=== PATIENT | female | born 1970 | race Caucasian/White ===

== ENCOUNTER → 2018-06-18 13:51 | Outpatient (CLI) | payer OTHER, SELFPAY ==
[2018-06-18 15:05] LABS: Erythrocyte Sedimentation Rate 2 mm/hr (0-20)
[2018-06-18 15:06] LABS: Absolute Lymphocyte Count 4.33 X10^3/ul (0.83-4.51); Absolute Neutrophil Count 9.2 X10^3/uL (2.0-7.7); Basophil# 0.02 X10^3/uL; Basophil% 0.1 % (0-1); Eosinophil# 0.06 X10^3/uL; Eosinophils% 0.4 % (0-5); Hematocrit 47.2 % (37-47); Hemoglobin 15.8 g/dl (12.0-15.0); Lymphocyte # 4.33 X10^3/ul (4.0); Lymphocyte % 29.9 % (19-41); Mean Corp Hgb Conc 33.5 g/gl (32-36); Mean Corpuscular Hgb 29.5 pg (27.0-32.0); Mean Corpuscular Volume 88.2 fL (81-99); Mean Platelet Vol. 11.2 fl (6.2-12.0); Monocyte# 0.87 X10^3/uL; Neutrophil # 9.18 X10^3/uL (2.7-7.7); Neutrophil % 63.4 % (47-70); POSITIVE COUNT NO; POSITIVE DIFFERENTIAL NO; POSITIVE MORPHOLOGY NO; Platelet Count 232 K/mm3 (150-450); RBC Distribution Width SD 41.8 fl (35.1-43.9); Red Blood Count 5.35 M/mm3 (4.2-5.4); White Blood Count 14.5 K/mm3 (4.4-11.0)
[2018-06-18 15:28] LABS: ALB/GLOB Ratio 1.2 RATIO (0.9-2.4); AST(SGOT) 28 U/L (15-37); Alanine Aminotransfer ALT/SGPT 46 U/L (13-56); Alkaline Phosphatase 65 U/L (45-117); Anion Gap 8 (5-15); BUN 11 mg/dL (7-18); BUN/Creat Ratio 12.7 RATIO (10-20); CRP < 2.90 mg/L (0.0-3.0); Calcium,Total 8.8 mg/dL (8.5-10.1); Chloride 105 mmol/L (98-107); Creatinine, Serum 0.87 mg/dL (0.55-1.02); EST Glomerular Filtration Rate 75 mL/min (>60); Est Glom Filt Rate - Afr Amer 90 mL/min (>60); Globulin 3.3 g/dL (2.2-4.2); Glucose 69 mg/dL (74-106); Potassium 3.6 mmol/L (3.5-5.1); Protein, Total 7.3 g/dL (6.4-8.2); Sodium Level 142 mmol/L (136-145)
== END ==
PROVIDERS: Family Provider Internal Medicine; PCP Internal Medicine; Visit Provider Internal Medicine
DX: R10.13 Epigastric pain (principal)
CPT/HCPCS: 36415; 80053; 85025; 85652; 86140

== ENCOUNTER → 2018-06-19 08:59 | Outpatient (CLI) | payer OTHER, SELFPAY ==
--- NOTE | 2018-06-19 09:02 | US_ITS ---
STUDY: ABDOMINAL ULTRASOUND - RIGHT UPPER QUADRANT REASON FOR VISIT: Female, 48 years old. Abdominal right upper quadrant pain x2.5 weeks. TECHNIQUE: Ultrasound evaluation of the right upper quadrant was performed with real-time and static solomon-scale imaging. TECHNICAL QUALITY: Adequate. COMPARISON: None available. FINDINGS: Liver: The liver measures 14.0 cm. There is normal echogenicity of the liver. The bile ducts visualized appear within normal limits. There is hepatic color flow. The direction of portal flow appears hepatopetal. There is no demonstrated mass lesion. Gallbladder: Normal distended gallbladder. The gallbladder wall measures 2.0 mm. There is a negative sonographic Ortiz's sign. There is no pericholecystic fluid. There are no gallstones. Common Bile Duct (C.B.D.): The common bile duct measures 2.4 mm diameter. Pancreas: Normal size of the visualized head, body and tail of the pancreas. Small portions pancreatic head and tail are partially disturbed by bowel contents. There is normal echogenicity of the pancreas. There is no demonstrated pancreatic mass or cyst. No pancreatic ductal dilatation identified. Right Kidney: Normal size of the right kidney. The right kidney measures 10.7 x 4.4 x 4.9 cm. Normal renal cortex. The right cortex measures 1.0 cm. There is no demonstrated renal mass or cyst. There is no right hydronephrosis. Prominent right extra renal pelvis suggested. One image shows rounded smooth margin tiny homogeneous hyperechoic area proximal 0.25 cm diameter, may represent artifact or tiny calculus. US/Gallbladder IMPRESSION: Normal appearing right upper quadrant ultrasound examination. Prominent right extrarenal pelvis. Artifact versus tiny calculus right kidney. Limitations above. Electronically Signed: Aman Yoon, at 11:40 EDT Tel , Service support ,
--- NOTE | 2018-06-19 16:05 | CT_ITS ---
STUDY: CT ABDOMEN AND PELVIS WITHOUT CONTRAST REASON FOR EXAM: Female, 48 years old. Right upper quadrant pain. RADIATION DOSAGE (If Supplied By Facility): CTDIvol = ( 15.42 ) mGy, DLP = ( 716.57 ) mGycm TECHNIQUE: Transaxial images were obtained from the dome of the diaphragm to the symphysis pubis without oral contrast, and without intravenous contrast. Sagittal and coronal images were reconstructed. Individualized dose optimization techniques were used for this CT. COMPARISON: Gallbladder ultrasound June 19, 2018 FINDINGS: The visualized lung bases are unremarkable. The visualized portions of the heart are within normal limits. Normal liver. Normal gallbladder and extrahepatic biliary system. Normal spleen. Normal pancreas. Normal bilateral adrenal glands. Normal size of the right kidney. Extrarenal pelvis without caliectasis or ureteral dilatation. Negative for renal or ureteral stones. Normal left kidney. Food filled stomach. Normal small intestine. Normal colon. Small appendicolith of an otherwise normal appendix versus retention of dense medication. Minimal calcified plaque of the aorta. Normal inferior vena cava. Normal retroperitoneum. Normal urinary bladder. Negative for pelvic mass or free fluid of the pelvis. Normal abdominal wall. Degenerative facet joint changes. CT/Abdomen/Pelvis without Cont IMPRESSION: No acute bowel related findings. Negative for evidence of obstruction, inflammation or perforation. A normal size appendix is identified. There is some amorphous density in the appendix. Appendicolith versus retained dense medication, most likely the latter. Normal size kidneys bilaterally. Extrarenal pelvis on the right. Negative for renal, ureteral or bladder stones. Negative for pelvic mass or free fluid of the pelvis. Electronically Signed: Kimberley Roca MD at 17:29 EDT , Service support ,
== END ==
PROVIDERS: Family Provider Internal Medicine; PCP Internal Medicine; Visit Provider Internal Medicine
DX: R10.13 Epigastric pain (principal)
CPT/HCPCS: 74176; 76705

== ENCOUNTER → 2018-06-20 12:16 | Outpatient (CLI) | payer OTHER, SELFPAY ==
--- NOTE | 2018-06-20 12:19 | NM_ITS ---
CLINICAL: 48-year-old female with reported history of right upper quadrant abdominal pain. RADIONUCLIDE HEPATOBILIARY SCINTIGRAPHY COMPARISON: CT of the abdomen-pelvis and abdominal ultrasound reports 06/19/2018 FINDINGS: Following the intravenous administration of 5.2 mCi of 99m Tc Mebrofenin, hepatobiliary images reveal: 1. Relatively prompt and homogeneous radiopharmaceutical concentration is noted by a normal sized liver. No parenchymal defects are identified. 2. Gallbladder activity is identified at 15 minutes post radiopharmaceutical administration. 3. Small intestinal tract is observed by 60 minutes post radiopharmaceutical administration. 4. Washout of the radiopharmaceutical by the hepatic parenchyma appears qualitatively normal. Cholecystokinin (0.02 ug/kg) was administered intravenously over a 30-minute period. The post CCK gallbladder ejection fraction calculated at 60 minutes following Cholecystokinin administration was noted to be 47.0 % (normal greater than 35%). During 30 minutes of post CCK imaging, there is no scintigraphic evidence of reflux of the radiotracer into the common hepatic duct or refilling of the gallbladder. NM/Hepatobilliary Img w/Pharm Int IMPRESSION: 1. NORMAL 99m Tc Mebrofenin hepatobiliary imaging examination with Cholecystokinin. A. A gallbladder ejection fraction calculated to be greater than 35% following the administration of Cholecystokinin makes the probability of functional hepatobiliary disease (gallbladder and/or sphincter of Oddi dyskinesia) and/or organic hepatobiliary disease (chronic acalculous cholecystitis and/or cystic duct syndrome) to be low. (Susan Mishra et al, Journal of Nuclear Medicine 32:1695, 1990). Electronically Signed: Oz Menchaca DO at 15:31 EDT Tel , Service support ,
== END ==
PROVIDERS: Family Provider Internal Medicine; PCP Internal Medicine; Visit Provider Internal Medicine
DX: R10.13 Epigastric pain (principal)
CPT/HCPCS: 78227; A9537

== ENCOUNTER → 2018-07-02 11:33 | Outpatient (CLI) | payer OTHER, SELFPAY ==
[2018-07-02 12:25] LABS: Absolute Lymphocyte Count 3.81 X10^3/ul (0.83-4.51); Absolute Neutrophil Count 8.5 X10^3/uL (2.0-7.7); Basophil# 0.02 X10^3/uL; Basophil% 0.2 % (0-1); Eosinophil# 0.06 X10^3/uL; Eosinophils% 0.5 % (0-5); Hematocrit 44.5 % (37-47); Hemoglobin 14.5 g/dl (12.0-15.0); Lymphocyte # 3.81 X10^3/ul (4.0); Lymphocyte % 29.2 % (19-41); Mean Corp Hgb Conc 32.6 g/gl (32-36); Mean Corpuscular Hgb 28.9 pg (27.0-32.0); Mean Corpuscular Volume 88.8 fL (81-99); Mean Platelet Vol. 10.9 fl (6.2-12.0); Monocyte# 0.64 X10^3/uL; Monocyte% 4.9 % (0-10); Neutrophil # 8.52 X10^3/uL (2.7-7.7); Platelet Count 195 K/mm3 (150-450); RBC Distribution Width SD 42.1 fl (35.1-43.9); Red Blood Count 5.01 M/mm3 (4.2-5.4); White Blood Count 13.1 K/mm3 (4.4-11.0)
[2018-07-02 12:29] LABS: POSITIVE COUNT NO; POSITIVE DIFFERENTIAL NO; POSITIVE MORPHOLOGY NO
== END ==
PROVIDERS: Family Provider Internal Medicine; PCP Internal Medicine; Visit Provider Internal Medicine
DX: D72.829 Elevated white blood cell count, unspecified (principal)
CPT/HCPCS: 36415; 85025

== ENCOUNTER 2018-07-07 05:53 | Day surgery (SDC) | payer OTHER, SELFPAY ==
[2018-07-07] VITALS (7 sets, daily range): BP systolic 101–140; BP diastolic 57–91; PULSE 68–84; RESP 18; TEMP 36.1–36.7; O2SAT 99–100; BMI 36.9
--- NOTE | 2018-07-07 | IMM_PTH ---
PATIENT: COLLINS MARTINEZ LOC: EN U#:[id number] AGE/SX: 48/F ROOM: RE07/07/[address]: Dr. Aman Suh MD : 1970 BED: DIS: 07/07/2018 SPEC #: [id number] RECD: 07/07/18 15:41 STATUS: MCKAYLA REClaude #: [id number] MOISES: 07/07/18 00:[address]: Aman Suh DEPT: IMMUNOHISTOCHEMISTRY RECD BY: Roni Mehta ENTERED: 07/07/18 15:41 SP TYPE: IMMUNO OTHR DR: Dr. Pooja Corral, Tissues: Gastric mucous membrane Procedures: H Pylori (initial) PHYSICIAN & INSTITUTION [place] [address] SPECIMEN INFORMATION: Tissue Source: Gastric antrum Clinical Info: Epigastric abdominal pain Specimen Number: [id number] CPT code: 40213 METHODOLOGY: Deparaffinized sections of prefer/formalin-fixed tissue or PAP/DQ stained slides are incubated with monoclonal/polyclonal antibodies/oligonucleotide probes. Localization is made via biotin free immunoperoxidase method. Appropriate controls are performed and reacted as expected. Results on target cell population are indicated in the following table: RESULTS: ANTIBODY / CLONE RESULT Block B H Pylori (polyclonal) negative These tests were developed and their performance characteristics determined by [facility]. They may not have been cleared or approved by the U.S. Food and Drug Administration. The FDA has determined that such clearance or approval is not necessary. INTERPRETATION: Gastric antrum, biopsy: Negative for Helicobacter pylori organisms. AM:vinita 07/09/18
--- NOTE | 2018-07-07 06:30 | EGD_PTH ---
PATIENT: COLLINS MARTINEZ LOC: EN U#:[id number] AGE/SX: 48/F ROOM: RE07/07/[address]: Dr. Aman Suh MD : 1970 BED: DIS: 07/07/2018 SPEC #: [id number] RECD: 07/07/18 13:26 STATUS: MCKAYLA CHACHO #: [id number] MOISES: 07/07/18 06:[address]: Aman Suh DEPT: SURGICAL PATHOLOGY RECD BY: Alfred Patel ENTERED: 07/07/18 13:59 SP TYPE: EGD BIOPSY AMBERLY DR: Dr. Pooja Corral DO Tissues: A - Duodenum, NOS B - Gastric mucous membrane C - Esophageal mucous membrane D - Esophageal mucous membrane Procedures: Surgery Specimen Level IV HEADER OPERATION: EGD poss dilation, MOS PRE-OP DIAGNOSIS: Epigastric abdominal pain TISSUE SUBMITTED: A. Duodenum, B. Gastric antrum ? path and H. Pylori, C. Distal esophagus, D. Mid esophagus MICROSCOPIC DIAGNOSIS A. Duodenum, biopsy: No pathologic diagnosis. B. Gastric antrum, biopsy: Mild chronic gastritis. C. Distal esophagus, biopsy: Fragments of benign superficial squamous mucosa. No evidence of inflammation. D. Mid esophagus, biopsy: Fragments of benign superficial squamous mucosa. No evidence of inflammation. AM:vinita 07/08/18 COMMENT B - The results of immunohistochemistry for Helicobacter pylori will be reported separately ([id number]). MICROSCOPIC DESCRIPTION Slides are reviewed. GROSS DESCRIPTION A - Received in fixative is one container labeled with the patient's name and designated duodenum biopsy. The specimen consists of multiple irregular fragments of light segal soft tissue that in aggregate measure 0.2 x 0.2 x 0.1 cm. The specimen is totally submitted in one cassette. B - Received in fixative is one container labeled with the patient's name and designated gastric antrum. The specimen consists of one irregular fragment of light segal soft tissue that measures 0.5 x 0.2 x 0.1 cm. The specimen is totally submitted in one cassette. C - Received in fixative is one container labeled with the patient's name and designated distal esophagus. The specimen consists of multiple irregular fragments of light segal soft tissue that in aggregate measure 0.6 x 0.3 x 0.1 cm. The specimen is totally submitted in one cassette. D - Received in fixative is one container labeled with the patient's name and designated mid esophagus. The specimen consists of two irregular fragments of light segal soft tissue that in aggregate measure 0.5 x 0.3 x 0.1 cm. The specimen is totally submitted in one cassette. / AM:vinita 07/07/18 TC:3 CPT: 98509 x4
--- NOTE | 2018-07-07 06:47 | PCM.OPRPT ---
Problem List (1) Epigastric abdominal pain Status: Acute Report of Operation Date of Procedure: 07/07/18 Pre-Operative Diagnosis: Epigastric right upper quadrant abdominal pain Post-Operative Diagnosis: Minimal antral erythema, small hiatal hernia, no acute findings Surgery/Procedure Performed:: Esophagogastroduodenoscopy with duodenal and antral and distal esophageal and mid esophageal biopsies with cold forceps Description of Surgical Findings:: Timeout informed consent was obtained. 48-year-old female was taken to the endoscopy room. Her oropharynx anesthetized with Topex. She was placed in the left lateral decubitus position. Throughout the procedure in aliquots she received total of 100 mg Demerol 3 mg of Versed is intravenous sedation. Under direct visitation videogastroscope was inserted into the esophageal inlet. Proximal mid distal esophagus did not appear to be remarkable. EG junction was at 38 cm. Small hiatal hernia noted. No gross evidence of significant reflux. The scope was advanced into the stomach. Some very mild erythema in the antrum noted. The pylorus appeared to be slightly small but simply with air insufflation and gentle pressure the scope was advanced. Perhaps more of a hypertonic response. The scope was advanced to the first and second portions of the duodenum. This was not remarkable. Biopsy was obtained of the second portion of the duodenum. Hemostasis was intact. The scope was withdrawn back in the stomach retroflexed the EG junction cardia inspected. Small wide open hiatal hernia noted. Photographs obtained. The scope was placed back in in antegrade viewing position. Cold forcep antral biopsy was obtained. Excess fluid and air was aspirated free after carefully inspecting greater and lesser curvatures. The scope was withdrawn to the distal esophagus were distal esophageal biopsies were obtained and then mid esophageal biopsies were obtained with cold forceps as well. Hemostasis was intact. No gross mucosal abnormalities of the esophagus. The procedure was completed with patient tolerating it well. Impression Small hiatal hernia. Minimal antral erythema. Possibly slightly increased pyloric resting muscular tone. Biopsies are pending. Recommendations for outpatient nuclear medicine emptying study will be pursued. The etiology of this patient's epigastric right upper quadrant pressure pain is undetermined at this time. Cc: Dr. Krista Corral Scope was inserted 0635. The procedure was completed at 0643. Aman Suh M.D., F.A.C.S. Type of Anesthesia:: IV Sedation
== END 2018-07-07 07:30 | disposition home or self-care (01) ==
LOC: EN 05:53 → AC 05:54
PROVIDERS: Family Provider Internal Medicine; PCP Internal Medicine; Visit Provider Surgery
PROC: (CPT 43239; principal; 2018-07-07 06:25)
DX: K29.50 Unspecified chronic gastritis without bleeding (principal); K44.9 Diaphragmatic hernia without obstruction or gangrene; K21.9 Gastro-esophageal reflux disease without esophagitis; F41.9 Anxiety disorder, unspecified; J45.909 Unspecified asthma, uncomplicated; M19.90 Unspecified osteoarthritis, unspecified site; Z79.51 Long term (current) use of inhaled steroids; Z79.899 Other long term (current) drug therapy
CPT/HCPCS: 43239; 88305; 88342; 99152; 99153; J7120

== ENCOUNTER → 2018-07-10 11:43 | Outpatient (CLI) | payer OTHER, SELFPAY | PROVIDERS: Family Provider Internal Medicine; PCP Internal Medicine; Visit Provider Surgery | DX: R10.13 Epigastric pain (principal); R93.5 Abnormal findings on diagnostic imaging of other abdominal regions, including retroperitoneum | CPT/HCPCS: 78264; A9541 ==

== ENCOUNTER 2019-01-14 17:10 | Emergency (ER) | payer OTHER, SELFPAY ==
[2019-01-14 17:12] VITALS: BP 162/80; PULSE 89; RESP 16; TEMP 36.1; O2SAT 99; BMI 39.0
--- NOTE | 2019-01-14 21:05 | CT_ITS ---
STUDY: CT BRAIN WITHOUT CONTRAST REASON FOR EXAM: Female, 49 years old. Head trauma RADIATION DOSAGE (If Supplied By Facility): CTDIvol = ( 44.99 ) mGy, DLP = ( 745.49 ) mGycm TECHNIQUE: Transaxial CT imaging of the brain was performed without administration of intravenous contrast material. Individualized dose optimization techniques were used for this CT. COMPARISON: None. FINDINGS: Normal soft tissue structures. Normal calvarium. Normal size ventricles and extra-axial spaces for the patient's age. Normal white matter tracts of the cerebral hemispheres. Normal basal ganglia and thalami. Normal brainstem. Normal cerebellum. There is no intracranial hemorrhage. There are no findings of an acute ischemic infarction. Normal visualized paranasal sinuses. CT/Brain/Head without Contrast IMPRESSION: Normal unenhanced CT scan of the brain. Electronically Signed: Ramon Lund MD at 22:18 EST , Service support ,
--- NOTE | 2019-01-14 23:20 | ED.VISSUMM ---
- ER Visit Summary Date of Service: 01/14/19 Chief Complaint: Head injury History of Present Illness: The patient is a 49 F presenting after head injury. Patient states she was bending over and stood up quickly. She states she hit her head on a shoe rack. This occurred on Saturday. She had no LOC. She did have dizziness at that time. She has had persistent headache since that time. She has nausea with no vomiting. She has chronic nausea and is on Zofran. She denies fever or other complaints. Physical Examination: Vitals are stable. Patient is afebrile. Alert no acute distress. HEENT exam is unremarkable. PERRL, EOMI. mild ecchymosis left forehead Neck is nontender Lungs are clear and equal bilaterally. Heart is regular rate and rhythm. Abdomen is soft nontender nondistended. Extremities are unremarkable. Skin is warm and dry. No focal neurologic deficit. Remainder of exam is unremarkable. Emergency Department Course and Treatment: CT head shows no acute process. On reevaluation, patient is resting comfortably. She is advised to follow-up with her primary care physician. Advised return to ED if worsening complaints. Disposition: Discharge home Impression: Closed head injury This note was generated with [employer] dictation software. It may contain incorrect words, spelling, and punctuation that were not noted in review of the chart prior to signing ED Disposition - Plan for ED Patient: Instructions: ED Head Injury Closed Referrals: Pooja Corral DO [Primary Care Provider] - Tesha Garcia MD [STAFF PHYSICIAN] -
[2019-01-14 23:59] VITALS: BP 152/95; PULSE 74; RESP 16; O2SAT 98
[2019-01-14] MEDS: cloNIDine HCl 0.1 MG Tablet PO (23:59)
[2019-01-15] MEDS: Ketorolac 60 MG/2 ML Vial IM
[2019-01-15 00:18] VITALS: BP 160/108; PULSE 77; RESP 16; O2SAT 99
[2019-01-15 00:23] VITALS: BP 162/113; PULSE 75; RESP 16; O2SAT 98
== END 2019-01-15 00:34 | disposition home or self-care (01) ==
PROVIDERS: Emergency Provider Emergency Medicine; Family Provider Internal Medicine; PCP Internal Medicine
DX: S09.90XA Unspecified injury of head, initial encounter (principal); R11.0 Nausea; J45.909 Unspecified asthma, uncomplicated; Z79.51 Long term (current) use of inhaled steroids; Z79.899 Other long term (current) drug therapy; W22.09XA Striking against other stationary object, initial encounter; Y93.89 Activity, other specified; Y92.009 Unspecified place in unspecified non-institutional (private) residence as the place of occurrence of the external cause; Y99.8 Other external cause status
CPT/HCPCS: 70450; 96372; 99283

== ENCOUNTER → 2019-03-05 | Outpatient (CLI) | payer OTHER, SELFPAY ==
--- NOTE | 2019-03-05 13:25 | RAD_ITS ---
STUDY: X-RAY - CERVICAL SPINE REASON FOR EXAM: Female, 49 years old. Headache and neck pain TECHNIQUE: 7 view(s) of the cervical spine were obtained. COMPARISON: None FINDINGS: Normal anterior atlantoaxial articulation. Normal odontoid process. There is anatomic alignment of the cervical spine from C1 to C4. There is 2 to 3 mm of posterior subluxation of C5 on C4. C5-T1 align anatomically. This is likely a chronic subluxation as there is no soft tissue swelling or other evidence to suspect acute injury and there is no instability on the flexion or extension views. There is straightening of the normal cervical lordosis. There is multi-level endplate spondylosis. Normal disc space heights. Normal visualized intervertebral neuroforamina. The soft tissue structures are unremarkable. RAD/Cerv Spine Obl/Flex/Ext Comp IMPRESSION: No evidence of instability on flexion or extension views. 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
== END | disposition home or self-care (01) ==
LOC: RAD 13:23
PROVIDERS: Family Provider Internal Medicine; PCP Internal Medicine; Referring Provider Psychiatry & Neurology Neurology; Visit Provider Psychiatry & Neurology Neurology
DX: M54.2 Cervicalgia (principal)
CPT/HCPCS: 72052

== ENCOUNTER 2019-04-09 17:30 | Outpatient (RCR) | payer OTHER, SELFPAY ==
--- NOTE | 2019-03-13 09:28 | HP.PTEVAL ---
Patient's Visit Information COLLINS MARTINEZ is a 49 year old F referred to Physical Therapy by Dae Poole MD with a diagnosis of Vertigo, unsteadiness.. Date of Evaluation: 03/13/19 Physical Therapist: Kyle Gar DPT, OCS, CSCS - Visit Plan Frequency: 2x /Week Duration: 4-6 Weeks Plan: 2x/week for 4-6 weeks for. 1. progression of VOR and adaptation. 2. Monitor MSQ adn habituation ex. 3. Balance adn activity progression as able. Pt is full of anxietywith busy job that she feels over stimulates her but she has to do it. - Subjective Findings: Hit shoe rack on head after bending over 01/12/19. 2 days later went to ER with migraine which she sometimes get. Vision blurry at the time adn RICKETTS were main symptoms at the time. Is a high stress person adn very much full of anxiety. Driving makes her worse with dizzyness if she drives too long and is limtied to twenty mintues currently. Computer still makes her worse. These things bring on blurryness at times and fatigues easily. Needs to rest at home after work and then feels OK after an hour. Feels good after an hour(normal). No neck pain unusually lately. Missed some work early on and needs to work as she has no sick time. [place] and has ducks chickens and turkeys. Boyfriend doing much of that. She is unable to help. 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 - Pain RICKETTS Pain Intensity (Out of 10): 6 Pain Intensity Range: 0, 6 Comment: worked alot this week. - Objective Doing VOR ex at home seated seated 24 seconds, and makes more dizzy for and symptoms last a minute but not completely resolved. Unfortunately is overstimulating by looking at mirror when doing them. Balance and Neck ROM are good. Full c/s AROM without pain, Full UE AROM. - B hallpike but slightly dizzier to L then R adn treated per script with José Torres and instruct today. - roll test. Oculomotor: - nystagmus with gaze or head shake. convergence OK. - skew eye deviation. - head thrust. Pursuit adn saccades are not a problem. VOR 20 seconds is worse to 5/10 dizzyness for 30-40 seconds. Described as dizyness. - Balance Scores Functional Gait Assessment Score: 28 % Disability: 6.6700 - Goals Goal 1:: 60 second VOR without increased symptoms and I approp HEP to recalibrate vest system Goal Time Frame: 4-6 Weeks Goal 2:: Pt feel 90% better with activities adn no increased dizzyness. Goal Time Frame: 4-6 Weeks Goal 3:: ready to drive 45 minutes without symptoms. Goal Time Frame: 4-6 Weeks Goal 4:: 30/30 FGA to minimize risk. 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 Goal Time Frame: 4-6 Weeks - Rehabilitation Potential Physical Therapy Diagnosis: Vertigo likely form concussion Rehabilitation Potential: Good - Anticipated Interventions Patient/Client Instruction: Educate patient on: Condition, Plan of Care For the Purpose of:: To increase tolerance to activity/condition/position, To improve ability of physical actions for home/community/work/leisure Therapeutic Exercise to Include: Balance training Comment: adaptationa dn habituation ex and return to function For the Purpose of:: To increase tolerance to activity/condition/position, To improve ability of physical actions for home/community/work/leisure, To improve balance Thank you for the opportunity to evaluate your patient. For Medicare and Medicare HMO plans, please review the plan of care and approve it. It will need to be FAXED BACK to us at [phone] for Medicare purposes. For Medicare only, by signing this I certify the plan of care. Please let me know if there are questions or concerns regarding this plan of care. Physician Signature: Date:
--- NOTE | 2019-04-09 17:52 | HP.PTDCSUM ---
HP - PT D/C Summary It has been my pleasure to treat COLLINS MARTINEZ under orders from Dae Poole MD, for the diagnosis of Vertigo, unsteadiness. for a total of 7 visit(s). Discharge Date: 04/09/19 Please see the following information for a summary of their discharge status. - Subjective Subjective: Having a good week. Symptoms have been allright. Went to playground Saturday and tried to swing and got dizzy and it was transient. No other dizzyness. Even exercises are not bad. RICKETTS is allright this week. Neck pain is back to its chronic baseline symptoms. Back to doctor in two weeks. - Pain RICKETTS Pain Intensity (Out of 10): 0 - Overall Improvement % Improvement: 90 - Objective Objective/Function: FGA is better adn perfect. VOR is not symptomatic with walking. C/S aROM fulla nd without pain today. - Goals Goal 1:: 60 second VOR without increased symptoms and I approp HEP to recalibrate vest system Goal Progress: Goal Met Goal 2:: Pt feel 90% better with activities adn no increased dizzyness. Goal Progress: Goal Met Goal 3:: ready to drive 45 minutes without symptoms. Goal Progress: Goal Met Goal 4:: 3030 FGA to minimize risk. 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 Goal Progress: Goal Met - Plan Plan: D/C - D/C Information Discharge Comments: Doing well with balance, neck pain back to baseline, no dizzyness effecting function. Will f/u with doctor in 2 weeks. If there are questions or concerns regarding this patient's physical therapy, please feel free to call me at [phone]. Thank you for the referral of this patient. Sincerely, Kyle Gar, DPT, OCS, CSCS
== END 2019-04-09 19:00 | disposition home or self-care (01) ==
LOC: PT 17:30
PROVIDERS: Family Provider Internal Medicine; PCP Internal Medicine; Referring Provider Psychiatry & Neurology Neurology; Visit Provider Psychiatry & Neurology Neurology
DX: H81.10 Benign paroxysmal vertigo, unspecified ear (principal); R26.81 Unsteadiness on feet; M54.2 Cervicalgia; Z87.820 Personal history of traumatic brain injury
CPT/HCPCS: 97012; 97140; 97162; 97530

== ENCOUNTER → 2019-08-14 | Outpatient (CLI) | payer OTHER, SELFPAY | END | disposition home or self-care (01) | LOC: LABSPEC 16:17 | PROVIDERS: Visit Provider Obstetrics & Gynecology | DX: Z12.4 Encounter for screening for malignant neoplasm of cervix (principal) ==

== ENCOUNTER 2019-08-20 16:30 | Outpatient (RCR) | payer OTHER, SELFPAY ==
--- NOTE | 2019-07-14 10:38 | HP.PTEVAL ---
Patient's Visit Information COLLINS MARTINEZ is a 49 year old F referred to Physical Therapy by Pooja Corral DO with a diagnosis of Degenerative changes in L/S. Date of Evaluation: 07/14/19 Physical Therapist: Gaudencio Heaton PT, ATC - Visit Plan Frequency: 2x /Week Duration: 3 Weeks Plan: Postural edu, core strengthening in neutral spine, nustep, and HEP - Subjective Findings: Pt reports she has had LBP for a few years now. 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 Pt reports intermittent B LE radiculopathy that occurs with prolonged ambulation. Pt reports her goal is to be able to exercise again to lose weight, but is unable to secondary to LB. Pt has had xrays which reveal degenerative changes throughout her L/S. Pt reports she gets relief from her pain while using her inversion table at home. Pain occasionally wakes her up secondary to pain. Pt notes when she had an epidural when she was in labor, and believes this may have been what caused her initial pain. 0/10 pain sitting, 9/10 at worst. - Pain LBP Pain Intensity (Out of 10): 0 Pain Intensity Range: 9 - Objective Neuro: B LE sensation are WNL to light touch. B patellar reflex= 2/3. MMT: B LE's 5/5 throughout. ROM: Pt is severely limited with L/S extension ROM. All other movements are WNL. Repeated movements: extension results in increased pain. Flexion has no effect - Goals Goal 1:: Decrease LBP x 50% to aid with sleep Goal Time Frame: 2-4 Weeks Goal 2:: Pt will be able to tolerate normal work activity without limitations Goal Time Frame: 2-4 Weeks Goal 3:: I with HEP Goal Time Frame: 2-4 Weeks - Rehabilitation Potential Physical Therapy Diagnosis: Pt has LBP, limitations with ambulatory distance, and decreased L/S ROM secondary to degenerative changes in the L/S Rehabilitation Potential: Good - Anticipated Interventions Patient/Client Instruction: Educate patient on: Condition, Plan of Care For the Purpose of:: To improve self management Therapeutic Exercise to Include: Strength training, Endurance training, Body mechanics, Postural training, Dynamic Lumbar Stabilization For the Purpose of:: To decrease pain, To increase ROM, To improve muscle performance and motor function IF ES: Yes For the Purpose of:: To decrease pain Thank you for the opportunity to evaluate your patient. For Medicare and Medicare HMO plans, please review the plan of care and approve it. It will need to be FAXED BACK to us at [phone] for Medicare purposes. For Medicare only, by signing this I certify the plan of care. Please let me know if there are questions or concerns regarding this plan of care. Physician Signature: Date:
--- NOTE | 2019-08-20 16:57 | HP.PTDCSUM ---
HP - PT D/C Summary It has been my pleasure to treat COLLINS MARTINEZ under orders from Pooja Corral DO, for the diagnosis of Degenerative changes in L/S for a total of 10 visit(s). Discharge Date: Please see the following information for a summary of their discharge status. - Subjective Subjective: Minor LBP, but the nerve pain is the same - Pain LBP Pain Intensity (Out of 10): 2 - Overall Improvement % Improvement: 90 - Objective Objective/Function: Pain is minimal at 12/21 this date. Still wakens her at night. No change in LE radiculopathy. Pt is I with HEP. Pt has returned to work without limitations. - Goals Goal 1:: Decrease LBP x 50% to aid with sleep Goal Progress: Progressing Goal 2:: Pt will be able to tolerate normal work activity without limitations Goal Progress: Goal Met Goal 3:: I with HEP Goal Progress: Goal Met - Plan Plan: Discharge - D/C Information If there are questions or concerns regarding this patient's physical therapy, please feel free to call me at [phone]. Thank you for the referral of this patient. Sincerely, Gaudencio Heaton, PT, ATC
== END 2019-08-20 19:00 | disposition home or self-care (01) ==
LOC: PT 16:30
PROVIDERS: Family Provider Internal Medicine; PCP Internal Medicine; Visit Provider Internal Medicine
DX: M54.5 Low back pain (principal); M51.36 Other intervertebral disc degeneration, lumbar region; M77.9 Enthesopathy, unspecified; M43.00 Spondylolysis, site unspecified
CPT/HCPCS: 97110; 97161; 97530

== ENCOUNTER → 2019-08-21 | Outpatient (CLI) | payer OTHER, SELFPAY ==
--- NOTE | 2019-08-21 13:28 | US_ITS ---
STUDY: ULTRASOUND TRANSVAGINAL CLINICAL: Female, 49 years old. Heavy periods and pain. TECHNIQUE: Transabdominal and Transvaginal COMPARISON: CT scan 06/19/2018. FINDINGS: Normal uterine size measuring 9.3 x 5.1 x 3.0 cm in maximal craniocaudal dimension. There are no myometrial masses, however the uterus is diffusely heterogeneous and there may be diffuse leiomyomatous change.. Normal endometrial thickness measuring 6.5 mm. Endometrial echoes are hyperechoic. There are no endometrial masses, and there is no fluid in the endometrial cavity. Nabothian cyst of the uterine cervix. Normal right ovary, measuring 5.5 x 5.8 x 3.2 cm. There is a 4.7 cm ovarian cyst. Normal left ovary, measuring 3.0 x 2.6 x 1.8 cm. There are multiple follicles without a dominant cyst. There is no free fluid in the pelvis. Polycystic ovary disease: No. US/Pelvic (Non ) IMPRESSION: 4.7 cm right ovarian cyst which appears simple. Diffusely heterogeneous uterus which could represent diffuse leiomyomatous change without focal fibroid. Electronically Signed: Romario Arias MD at 0:00 EDT , Service support ,
--- NOTE | 2019-08-21 13:58 | US_ITS ---
STUDY: ULTRASOUND TRANSVAGINAL CLINICAL: Female, 49 years old. Heavy periods and pain. TECHNIQUE: Transabdominal and Transvaginal COMPARISON: CT scan 06/19/2018. FINDINGS: Normal uterine size measuring 9.3 x 5.1 x 3.0 cm in maximal craniocaudal dimension. There are no myometrial masses, however the uterus is diffusely heterogeneous and there may be diffuse leiomyomatous change.. Normal endometrial thickness measuring 6.5 mm. Endometrial echoes are hyperechoic. There are no endometrial masses, and there is no fluid in the endometrial cavity. Nabothian cyst of the uterine cervix. Normal right ovary, measuring 5.5 x 5.8 x 3.2 cm. There is a 4.7 cm ovarian cyst. Normal left ovary, measuring 3.0 x 2.6 x 1.8 cm. There are multiple follicles without a dominant cyst. There is no free fluid in the pelvis. Polycystic ovary disease: No. US/Transvaginal Non- IMPRESSION: 4.7 cm right ovarian cyst which appears simple. Diffusely heterogeneous uterus which could represent diffuse leiomyomatous change without focal fibroid. Electronically Signed: Romario Arias MD at 0:00 EDT , Service support ,
== END | disposition home or self-care (01) ==
LOC: US 13:25
PROVIDERS: Family Provider Internal Medicine; PCP Internal Medicine; Referring Provider Obstetrics & Gynecology; Visit Provider Obstetrics & Gynecology
DX: N94.10 Unspecified dyspareunia (principal)
CPT/HCPCS: 76830; 76856; 93976

== ENCOUNTER → 2019-09-09 | Outpatient (CLI) | payer OTHER, SELFPAY ==
--- NOTE | 2019-09-09 15:32 | BI_ITS ---
MAMMOGRAPHY - BILATERAL SCREENING REASON FOR EXAM: Female, 49 years old. Routine annual screening examination. PERTINENT HISTORY: Non-contributory. TECHNIQUE: Digital bilateral breast ainsley (3D mammographic acquisition) in the CC and MLO projections. 2-D mediolateral oblique (MLO) and craniocaudad (CC) views of both breasts were obtained. CAD: Full Field Digital Mammography with Computer Added Detection was performed. COMPARISON: No comparison mammograms available at this time. If any prior films become available, an addendum to this report can be generated. FINDINGS: Breast Composition: There are scattered areas of fibroglandular density. There are no dominant masses or suspicious calcifications. No other significant abnormalities are identified. BI/SCREEN MAMM (CAD) W/AINSLEY BILAT IMPRESSION: Negative screening mammogram. Yearly followup mammogram recommended. (A) ASSESSMENT CATEGORY: BIRADS Category 1: Negative. A letter regarding these results will be sent to the patient by the facility within 30 days. Approximately 10% of breast cancers are not detected by mammography. A normal mammogram should not delay biopsy of a clinically suspicious abnormality. [id number] Electronically Signed: Fritz Bradshaw, at 12:47 EDT , Service support ,
== END | disposition home or self-care (01) ==
PROVIDERS: Family Provider Internal Medicine; PCP Internal Medicine; Referring Provider Obstetrics & Gynecology; Visit Provider Obstetrics & Gynecology
DX: Z12.31 Encounter for screening mammogram for malignant neoplasm of breast (principal)
CPT/HCPCS: 77063; 77067

== ENCOUNTER → 2020-04-08 14:00 | Outpatient (CLI) | payer OTHER, SELFPAY | PROVIDERS: PCP Internal Medicine; Referring Provider Internal Medicine; Visit Provider Internal Medicine | DX: R00.2 Palpitations (principal) | CPT/HCPCS: 93225; 93226 ==

== ENCOUNTER → 2020-04-25 13:37 | Outpatient (CLI) | payer OTHER, SELFPAY ==
[2020-04-25 15:01] LABS: Absolute Lymphocyte Count 5.48 X10^3/uL (0.83-4.51); Absolute Neutrophil Count 8.8 X10^3/uL (2.0-7.7); Basophil# 0.05 X10^3/uL; Basophil% 0.3 % (0-1); Eosinophil# 0.13 X10^3/uL; Eosinophils% 0.8 % (0-5); Hematocrit 46.4 % (37-47); Hemoglobin 15.1 g/dL (12.0-15.0); Lymphocyte # 5.48 X10^3/ul (4.0); Lymphocyte % 35.7 % (19-41); Mean Corp Hgb Conc 32.5 g/dL (32-36); Mean Corpuscular Hgb 28.8 pg (27.0-32.0); Mean Corpuscular Volume 88.4 fL (81-99); Mean Platelet Vol. 11.1 fl (6.2-12.0); Monocyte# 0.85 X10^3/uL; Monocyte% 5.5 % (0-10); NRBC Flagged by Analyzer 0 % (0-5); Neutrophil # 8.79 X10^3/uL (2.7-7.7); Neutrophil % 57.4 % (47-70); POSITIVE DIFFERENTIAL YES; Platelet Count 258 K/mm3 (150-450); RBC Distribution Width CV 13.3 % (11.6-14.6); RBC Distribution Width SD 42.8 fl (35.1-43.9); Red Blood Count 5.25 M/mm3 (4.2-5.4); White Blood Count 15.4 K/mm3 (4.4-11.0)
[2020-04-25 15:02] LABS: Differential Indicated SCAN CRITERIA MET
[2020-04-25 15:42] LABS: ALB/GLOB Ratio 1.1 RATIO (0.9-2.4); AST(SGOT) 15 U/L (15-37); Alanine Aminotransfer ALT/SGPT 30 U/L (13-56); Albumin, Serum 3.6 g/dL (3.2-5.0); Alkaline Phosphatase 79 U/L (45-117); Anion Gap 4 (5-15); BUN 10 mg/dL (7-18); BUN/Creat Ratio 11.6 RATIO (10-20); Calcium,Total 8.9 mg/dL (8.5-10.1); Chloride 109 mmol/L (98-107); Creatinine, Serum 0.86 mg/dL (0.55-1.02); EST Glomerular Filtration Rate 75 mL/min (>60); Est Glom Filt Rate - Afr Amer 90 mL/min (>60); Globulin 3.3 g/dL (2.2-4.2); Glucose 75 mg/dL (74-106); Potassium 3.8 mmol/L (3.5-5.1); Protein, Total 6.9 g/dL (6.4-8.2); Sodium Level 141 mmol/L (136-145); Thyroid Stim Hormone (TSH) 2.98 uIU/mL (0.358-3.74)
[2020-04-25 17:34] LABS: Platelet Estimate ADEQUATE (ADEQ); Red Cell Morphology NORM C+C NORMAL (NORM C&C)
== END ==
PROVIDERS: PCP Internal Medicine; Referring Provider Internal Medicine; Visit Provider Internal Medicine
DX: R00.2 Palpitations (principal)
CPT/HCPCS: 36415; 80053; 84443; 85025

== ENCOUNTER → 2020-05-02 12:31 | Outpatient (CLI) | payer OTHER, SELFPAY ==
[2020-05-02 14:14] LABS: Absolute Lymphocyte Count 3.98 X10^3/uL (0.83-4.51); Absolute Neutrophil Count 7.1 X10^3/uL (2.0-7.7); Basophil# 0.05 X10^3/uL; Basophil% 0.4 % (0-1); Eosinophil# 0.09 X10^3/uL; Eosinophils% 0.8 % (0-5); Hematocrit 45.9 % (37-47); Hemoglobin 14.8 g/dL (12.0-15.0); Lymphocyte # 3.98 X10^3/ul (4.0); Lymphocyte % 33.8 % (19-41); Mean Corp Hgb Conc 32.2 g/dL (32-36); Mean Corpuscular Hgb 28.5 pg (27.0-32.0); Mean Corpuscular Volume 88.3 fL (81-99); Mean Platelet Vol. 11.4 fl (6.2-12.0); Monocyte# 0.58 X10^3/uL; Monocyte% 4.9 % (0-10); NRBC Flagged by Analyzer 0 % (0-5); Neutrophil # 7.05 X10^3/uL (2.7-7.7); Neutrophil % 59.8 % (47-70); Platelet Count 250 K/mm3 (150-450); RBC Distribution Width CV 13.1 % (11.6-14.6); RBC Distribution Width SD 42.4 fl (35.1-43.9); White Blood Count 11.8 K/mm3 (4.4-11.0)
== END ==
PROVIDERS: PCP Internal Medicine; Referring Provider Internal Medicine; Visit Provider Internal Medicine
DX: D72.829 Elevated white blood cell count, unspecified (principal)
CPT/HCPCS: 36415; 85025

== ENCOUNTER → 2020-09-07 11:24 | Outpatient (CLI) | payer OTHER, SELFPAY ==
[2020-09-07 11:28] LABS: Mucous, Urine 0 SEEN /hpf (<or=2+); Red Blood Cells-Urine 0 SEEN /hpf (0-5); White Blood Cells 0 SEEN /hpf (0-5)
[2020-09-07 12:38] LABS: Absolute Lymphocyte Count 3.95 X10^3/uL (0.83-4.51); Absolute Neutrophil Count 7.3 X10^3/uL (2.0-7.7); Basophil# 0.05 X10^3/uL; Basophil% 0.4 % (0-1); Eosinophil# 0.11 X10^3/uL; Eosinophils% 0.9 % (0-5); Hematocrit 46.7 % (37-47); Hemoglobin 15.3 g/dL (12.0-15.0); Lymphocyte # 3.95 X10^3/ul (4.0); Lymphocyte % 32.5 % (19-41); Mean Corp Hgb Conc 32.8 g/dL (32-36); Mean Corpuscular Hgb 29.7 pg (27.0-32.0); Mean Corpuscular Volume 90.5 fL (81-99); Mean Platelet Vol. 12.1 fl (6.2-12.0); Monocyte# 0.68 X10^3/uL; Monocyte% 5.6 % (0-10); NRBC Flagged by Analyzer 0 % (0-5); Platelet Count 213 K/mm3 (150-450); RBC Distribution Width CV 13.1 % (11.6-14.6); RBC Distribution Width SD 42.7 fl (35.1-43.9); Red Blood Count 5.16 M/mm3 (4.2-5.4); White Blood Count 12.2 K/mm3 (4.4-11.0)
[2020-09-07 12:59] LABS: Color, Urine Straw (Yellow); Glucose, Dipstick Normal (Normal); Ketone-Dipstick Negative (Negative); Leukocyte Esterase-Dipstick Negative /ul (Negative); Nitrite-Dipstick Negative (Negative); Occult Blood-Urine Negative /ul (Negative); Protein-Dipstick Negative (Negative); Urine Bilirubin Dipstick Negative (Negative); Urine Clarity Clear (Clear); Urine Urobilinogen Normal (Normal)
[2020-09-07 13:13] LABS: Bacteria 1+ /hpf (None Seen); Squamous Epithelial Cells - UA 0-5 SEEN /hpf (5-10)
[2020-09-07 13:18] LABS: Vitamin D,25 Hydroxy 64.8 ng/mL
[2020-09-07 13:25] LABS: Microalbumin,Random Urine 9.2 mg/L (NO RANGE EST.); Microalbumin:Creatinine Ratio 12.5 mg/g CRE (<30 mg/g CRE)
[2020-09-07 13:27] LABS: ALB/GLOB Ratio 1.1 RATIO (0.9-2.4); AST(SGOT) 18 U/L (15-37); Alanine Aminotransfer ALT/SGPT 34 U/L (13-56); Albumin, Serum 3.7 g/dL (3.2-5.0); Alkaline Phosphatase 90 U/L (45-117); Anion Gap 5 (5-15); BUN 14 mg/dL (7-18); BUN/Creat Ratio 16.3 RATIO (10-20); Calcium,Total 8.9 mg/dL (8.5-10.1); Chloride 108 mmol/L (98-107); Cholesterol 139 mg/dL (200); Creatinine, Serum 0.86 mg/dL (0.55-1.02); EST Glomerular Filtration Rate 75 mL/min (>60); Est Glom Filt Rate - Afr Amer 90 mL/min (>60); Globulin 3.3 g/dL (2.2-4.2); Glucose 75 mg/dL (74-106); High Density Lipoprotein 37 mg/dL; Potassium 3.9 mmol/L (3.5-5.1); Sodium Level 141 mmol/L (136-145); Thyroid Stim Hormone (TSH) 1.44 uIU/mL (0.358-3.74); Triglycerides 77 mg/dL; Very Low Density Lipoprotein 15 mg/dL (5-40)
== END ==
PROVIDERS: PCP Internal Medicine; Visit Provider Internal Medicine
DX: I10 Essential (primary) hypertension (principal); E55.9 Vitamin D deficiency, unspecified
CPT/HCPCS: 36415; 80053; 80061; 81001; 82043; 82306; 82570; 84443; 85025

== ENCOUNTER → 2020-09-09 13:35 | Outpatient (CLI) | payer OTHER, SELFPAY ==
--- NOTE | 2020-09-09 13:36 | BI_ITS ---
MAMMOGRAPHY - BILATERAL SCREENING REASON FOR EXAM: Female, 50 years old. Routine annual screening examination. PERTINENT HISTORY: Non-contributory. TECHNIQUE: Digital bilateral breast ainsley (3D mammographic acquisition) in the CC and MLO projections. 2-D mediolateral oblique (MLO) and craniocaudad (CC) views of both breasts were obtained. CAD: Full Field Digital Mammography with Computer Added Detection was performed. COMPARISON: Comparison is made with prior study 09/09/2019. FINDINGS: Breast Composition: There are scattered areas of fibroglandular density. There are no dominant masses or suspicious calcifications. No other significant abnormalities are identified. There has been no significant change since the prior study. BI/SCREEN MAMM (CAD) W/AINSLEY BILAT IMPRESSION: Stable bilateral screening mammogram. Yearly follow-up mammogram recommended. (A) ASSESSMENT CATEGORY: BIRADS Category 1: Negative. A letter regarding these results will be sent to the patient by the facility within 30 days. Approximately 10% of breast cancers are not detected by mammography. A normal mammogram should not delay biopsy of a clinically suspicious abnormality. [id number] Electronically Signed: Fritz Bradshaw, at 14:36 EDT , Service support ,
== END ==
PROVIDERS: PCP Internal Medicine; Referring Provider Obstetrics & Gynecology; Visit Provider Obstetrics & Gynecology
DX: Z12.31 Encounter for screening mammogram for malignant neoplasm of breast (principal)
CPT/HCPCS: 77063; 77067

== ENCOUNTER → 2021-08-16 16:10 | Outpatient (CLI) | payer OTHER, SELFPAY ==
--- NOTE | 2021-08-16 16:13 | RAD_ITS ---
STUDY: X-RAY CHEST REASON FOR EXAM: Female, 51 years old. Cough. TECHNIQUE: PA and lateral views of the chest. COMPARISON: None. FINDINGS: The lungs are clear and expanded. There is no demonstrated pleural abnormality. Normal size heart. Normal mediastinum and jeronimo. Normal visualized pulmonary arteries. Normal visualized aortic arch and descending thoracic aorta. Mild degenerative changes of the thoracic spine. Normal visualized ribs, clavicles, and shoulders. There is no demonstrated abnormality of the visualized soft tissue structures of the upper abdomen. RAD/Chest PA and Lateral IMPRESSION: No acute cardiopulmonary disease. Electronically Signed: Gus Godinez DO at 16:33 EDT Tel [phone], Service support ,
== END ==
PROVIDERS: PCP Internal Medicine; Referring Provider Nurse Practitioner; Visit Provider Nurse Practitioner
DX: R05.9 Cough, unspecified (principal)
CPT/HCPCS: 71046

== ENCOUNTER → 2021-08-24 13:04 | Outpatient (CLI) | payer OTHER, SELFPAY ==
--- NOTE | 2021-08-24 13:20 | CT_ITS ---
STUDY: CTA CHEST REASON FOR EXAM: Female, 51 years old. Shortness of breath. Cough and wheezing. Fatigue. RADIATION DOSAGE (If Supplied By Facility): CTDIvol = ( 11.56 ) mGy, DLP = ( 450.88 ) mGycm TECHNIQUE: The examination was performed with the intravenous administration of IV 100mL Isovue-370. Post-processing of the angiographic images was performed, with multiplanar reformation and 3D reconstruction. Individualized dose optimization techniques were used for this CT. COMPARISON: Comparison is made with prior chest radiograph dated 08/16/2021. FINDINGS: Normal enhancement of the main pulmonary artery and right and left pulmonary arteries. Normal enhancement of the bilateral peripheral pulmonary arteries. There is no demonstrated pulmonary embolism. Normal thoracic aorta and visualized great vessels. There is no demonstrated aortic dissection. Normal heart and pericardium. Normal mediastinum. Normal hilar regions. Normal visualized trachea and bronchi. The lungs are well expanded. Normal pulmonary parenchyma. Normal pleura. Normal chest wall structures. There are degenerative changes of thoracic spine. Normal visualized upper abdomen. CT/CTA Chest W/WO Contrast IMPRESSION: Normal CTA chest examination, without a demonstrated pulmonary embolism or arterial dissection. Electronically Signed: Fritz Bradshaw MD at 13:45 EDT , Service support ,
== END ==
PROVIDERS: PCP Internal Medicine; Referring Provider Internal Medicine; Visit Provider Internal Medicine
DX: R06.02 Shortness of breath (principal)
CPT/HCPCS: 71275; Q9967

== ENCOUNTER → 2021-11-08 13:02 | Outpatient (CLI) | payer OTHER, SELFPAY ==
--- NOTE | 2021-11-08 13:10 | RAD_ITS ---
INDICATION: COVID EXAMINATION/TECHNIQUE: X-RAY - XR Chest 2 Views COMPARISON: 08/16/2021. FINDINGS: LINES/DEVICES: None. LUNGS: Peribronchial cuffing bilateral hilar prominence demonstrates no change. No evidence of focal areas of groundglass lung opacification seen, mild prominence of the bronchovascular markings is visualized. No evidence of consolidation, no evidence of pneumothorax or pleural effusion. MEDIASTINUM AND CARDIOVASCULAR STRUCTURES: Cardiac silhouette not enlarged. BONES AND SOFT TISSUES: Degenerative bone changes. RAD/Chest PA and Lateral IMPRESSION: Mild bronchovascular prominence but no evidence of scattered areas of airspace opacification is seen Electronically Signed: Marito Givens MD at 13:27 EST Tel , Service support ,
[2021-11-08 14:52] LABS: D-Dimer Quantitative (DVT/PE) 0.95 FEU/ug/m (0.27-0.49)
== END ==
LOC: MTLAB 13:08
PROVIDERS: PCP Internal Medicine; Referring Provider Nurse Practitioner; Visit Provider Nurse Practitioner
DX: U07.1 COVID-19 (principal)
CPT/HCPCS: 36415; 71046; 85379

== ENCOUNTER → 2021-11-08 17:02 | Outpatient (CLI) | payer OTHER, SELFPAY ==
--- NOTE | 2021-11-08 17:05 | CT_ITS ---
STUDY: CTA CHEST REASON FOR EXAM: Female, 51 years old. Hypertension Covid elevated d-dimer shortness of breath RADIATION DOSAGE (If Supplied By Facility): CTDIvol = ( 10.57 ) mGy, DLP = ( 447.51 ) mGycm TECHNIQUE: The examination was performed with the intravenous administration of IV 100mL Isovue-370. Post-processing of the angiographic images was performed, with multiplanar reformation and 3D reconstruction. Individualized dose optimization techniques were used for this CT. COMPARISON: 24 August 2021 FINDINGS: There is no acute or chronic pulmonary embolism. Aorta is of normal caliber. There are small scattered irregularly-shaped groundglass opacities.. There is no pneumothorax, pulmonary edema or pleural effusions. Mediastinal contents are normal. Osseous structures are intact. Abdominal structures are unremarkable. CT/CTA Chest W/WO Contrast IMPRESSION: 1. No pulmonary embolism. 2. Covid pneumonia. Electronically Signed: Judy Rivera MD at 18:59 EST Tel , Service support ,
[2021-11-08 17:20] LABS: CREATININE FINGERSTICK 0.7 mg/dL (0.55-1.02); EGFR FINGERSTICK > 60.0000 mL/min (>60)
== END ==
LOC: CT 17:03
PROVIDERS: PCP Internal Medicine; Referring Provider Internal Medicine; Visit Provider Internal Medicine
DX: R79.89 Other specified abnormal findings of blood chemistry (principal)
CPT/HCPCS: 71275; Q9967

== ENCOUNTER → 2023-02-11 | Outpatient (CLI) | payer SELFPAY ==
[2023-02-11 10:33] LABS: Vitamin B12 667 pg/mL (211-911)
[2023-02-11 10:39] LABS: Homocysteine 5.4 umol/L (3.2-10.7)
[2023-02-11 10:46] LABS: CRP, High Sensitivity Cardiac 1.75 mg/L; Estradiol 139.6 pg/mL
[2023-02-14 12:09] LABS: DHEA Sulfate 41.5 ug/dL (41.2-243.7); Testosterone, % Free 0.77 % (0.50-2.80); Testosterone, Free 0.34 ng/dL (0.10-0.85); Testosterone, Total 44 ng/dL (4-50)
[2023-02-14 14:22] LABS: Sex Hormone-binding Globulin 72.2 nmol/L (17.3-125.0)
== END | disposition home or self-care (01) ==
PROVIDERS: PCP Internal Medicine; Referring Provider Obstetrics & Gynecology; Visit Provider Obstetrics & Gynecology
DX: R25.2 Cramp and spasm (principal); N95.1 Menopausal and female climacteric states; I10 Essential (primary) hypertension; Z13.228 Encounter for screening for other metabolic disorders; Z79.890 Hormone replacement therapy
CPT/HCPCS: 36415; 82533; 82607; 82627; 82670; 83090; 83525; 84270; 84402; 84403; 86141; 82626

== ENCOUNTER 2025-01-01 08:29 | Outpatient (RCR) | payer BC, SELFPAY ==
--- NOTE | 2025-01-01 10:25 | HP.PTEVAL ---
Patient's Visit Information Visit Information Visit Information: COLLINS MARTINEZ is a 54 year old F referred to Physical Therapy by Dr. Edison Salvador DO with a diagnosis of SPONDYLOLISTHESIS ,LUMBAR ,SACROILIITIS. Date of Evaluation: 01/01/25 Physical Therapist: Dae Leavitt, PT, Cert MDT, OCS Visit Plan Frequency: 2-3x /Week Duration: 4-6 Weeks Plan: PT INTERVENTIONS DLS ,POSTURAL EX'S ,HIP STRENGTHENING ,ACTIVITY MODIFICATION AND MODALTIES Subjective Subjective: This 54 y/o female presents to physical therapy with lumbar radiculopathy. Patient has lumbar pain many years. Most recently lifting and patient off floor caused back pain last year. Patient symptoms worse thus seen [facility] then recommended PT and pain management. Prescribed meloxicam. Patient symmetrical LS and to buttuck and radaities left lower leg. Patient aggravating factors walking ,lifting ,standing and sitting. Alleviating meloxicam .trying ex's. Coughing/sneezing + . Bowel/bladder-. Patient pain affects sleeping. No prior TX. Patient has tried chiropractor 3 years ago. H/O HNP. Denies paresthesia/tingling-. Patient condition affects QOL and function/job demands. Patient goals to decrease pain. SOCIAL: single VOCATION: Nurse Pain Bilateral Back: Pain Intensity (Out of 10): 7 Pain Intensity Range: 10 Left Buttocks: Pain Intensity (Out of 10): 7 Pain Intensity Range: 10 Objective Objective: POSTURE : mild forward posture trunk GAIT : reciprocal pattern mild forward trunk PALAPTION: SI /LS SYMMETRIES: align LUMBAR ROM: flexion WNL ,extension severe loss pain ,side glides mod loss left with pain MMT: quads/hams 4/5 ,hip flexion right 4-/5 ,3+/5 left ,ankle 4/5 FLEXABILITY: hamstrings WFL Special Tests L/S Slump test left side: Negative L/S Slump test right side: Negative L/S Left Straight Leg Raise: Negative L/S Right Straight Leg Raise: Negative Lumbar Standing: Flexion - Mechanical Response: No effect Lumbar Standing: Flexion - Symptoms During Testing: No effect Lumbar Standing: Extension - Mechanical Response: No effect Lumbar Standing: Extension - Symptoms During Testing: Increases Lumbar Standing: Extension - Symptoms After Testing: Worse Lumbar Standing: Right Side Glides - Mechanical Response: No effect Lumbar Standing: Right Side [place] - Symptoms During Testing: No effect Lumbar Standing: Right Side [place] - Symptoms After Testing: No effect Lumbar Standing: Left Side [place] - Symptoms During Testing: Increases Lumbar Standing: Left Side [place] - Symptoms After Testing: No worse Balance/Special Test Scores Oswestry Low Back Score: 30 Goals Goal 1:: Patient to be I with HEP for back Goal Time Frame: 4-6 Weeks Goal 2:: Patient to demonstrate 50% improvement with function and less pain Goal Time Frame: 4-6 Weeks Goal 3:: Patient be able to walk /stand with less pain in leg and back to perform ADLS Goal Time Frame: 4-6 Weeks Goal 4:: Patient to improve lumbar ROM for ADLS and housework tasks Goal Time Frame: 4-6 Weeks Goal 5:: Patient to improve hip strength to good to improve QOL Goal Time Frame: 4-6 Weeks Goal 6:: Patient to improve back oswestry score 5 points to improve Goal Time Frame: 4-6 Weeks Rehabilitation Potential Physical Therapy Diagnosis: This patient has severe lumbar spondylolisthesis pain with extension ,walking /standing worse with position and motion testing thus benefit from skilled PT possible MRI Rehabilitation Potential: Good Anticipated Interventions Patient/Client Instruction: Educate patient on: Condition and Plan of Care For the Purpose of:: To decrease pain, To increase ROM, To improve muscle performance and motor function, To improve ability to perform ADL's, To increase tolerance to activity/condition/position, To improve ability of physical actions for home/community/work/leisure, To improve health of tissue, To decrease soft tissue restriction, To increase flexibility/ROM, To prevent re-injury and To improve tolerance to ADL's Therapeutic Exercise to Include: Strength training, Body mechanics, Postural training, Flexibilty training and Dynamic Lumbar Stabilization For the Purpose of:: To decrease pain, To decrease swelling/inflammation, To improve muscle performance and motor function, To improve ability to perform ADL's, To increase tolerance to activity/condition/position, To improve ability of physical actions for home/community/work/leisure, To improve health of tissue, To decrease soft tissue restriction, To increase flexibility/ROM, To reduce risk of recurrence, To prevent re-injury and To improve tolerance to ADL's TENS: Yes IF ES: Yes Cryotherapy (ice pack, ice massage): Yes Thermo therapy (hot pack): Yes Ultrasound (thermal/non thermal): Yes For the Purpose of:: To decrease pain, To decrease swelling/inflammation, To improve nutrient delivery to tissue, To increase oxygenation perfusion, To improve health of tissue, To decrease soft tissue restriction, To increase flexibility/ROM, To reduce risk of recurrence and To prevent re-injury Text: Thank you for the opportunity to evaluate your patient. For Medicare and Medicare HMO plans, please review the plan of care and approve it. It will need to be FAXED BACK to us at [phone] for Medicare purposes. For Medicare only, by signing this I certify the plan of care. Please let me know if there are questions or concerns regarding this plan of care. Physician Signature: Date:
--- NOTE | 2025-03-17 15:31 | HP.PT.NRP ---
Patient Information Patient Information: COLLINS MARTINEZ was seen in my office for initial evaluation on 01/01/25. The following Plan of Care was established for this patient: POC Established Initial Frequency: 2-3x /Week Initial Duration: 4-6 Weeks Anticipated Interventions Patient/Client Instruction: Educate patient on: Condition and Plan of Care For the Purpose of:: To decrease pain, To increase ROM, To improve muscle performance and motor function, To improve ability to perform ADL's, To increase tolerance to activity/condition/position, To improve ability of physical actions for home/community/work/leisure, To improve health of tissue, To decrease soft tissue restriction, To increase flexibility/ROM, To prevent re-injury and To improve tolerance to ADL's Therapeutic Exercise to Include: Strength training, Body mechanics, Postural training, Flexibilty training and Dynamic Lumbar Stabilization For the Purpose of:: To decrease pain, To decrease swelling/inflammation, To improve muscle performance and motor function, To improve ability to perform ADL's, To increase tolerance to activity/condition/position, To improve ability of physical actions for home/community/work/leisure, To improve health of tissue, To decrease soft tissue restriction, To increase flexibility/ROM, To reduce risk of recurrence, To prevent re-injury and To improve tolerance to ADL's TENS: Yes IF ES: Yes Cryotherapy (ice pack, ice massage): Yes Thermo therapy (hot pack): Yes Ultrasound (thermal/non thermal): Yes For the Purpose of:: To decrease pain, To decrease swelling/inflammation, To improve nutrient delivery to tissue, To increase oxygenation perfusion, To improve health of tissue, To decrease soft tissue restriction, To increase flexibility/ROM, To reduce risk of recurrence and To prevent re-injury Last Seen Last Seen: This patient was last seen in our office . Pertinent comments regarding their Physical therapy will appear below: Patient seen for PT joey for lumbar pain for HEP and management At this point I will be discontinuing this patient from physical therapy. I would be happy to see this patient again in the future if found appropriate by the physician. Thank you! Dae Leavitt, PT, Cert MDT, OCS Balance/Gait/Functional tests Balance/Special Test Scores Oswestry Low Back Score: 30
== END 2025-01-01 19:00 | disposition home or self-care (01) ==
LOC: PT 08:29
PROVIDERS: PCP Internal Medicine; Referring Provider Student in an Organized Health Care Education/Training Program; Visit Provider Student in an Organized Health Care Education/Training Program
DX: M43.16 Spondylolisthesis, lumbar region (principal); M46.1 Sacroiliitis, not elsewhere classified
CPT/HCPCS: 97162